=== PATIENT | female | born 1930 | race Caucasian/White ===

== ENCOUNTER 2019-10-11 17:32 | Emergency (ER) | payer OTHER ==
[2019-10-11 18:02] VITALS: BMI 22.1
[2019-10-11] MEDS ORDERED: LORazepam 2 MG/ML SDV VIAL ONE (18:05)
[2019-10-11] MEDS ORDERED: DIPHTH,PERTUSS(ACELL),TET 0.5 ML DISP.SYRIN IM ONE ×2 (18:25→18:31)
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
[2019-10-11 18:45] LABS: BASO % 0.6 % (0-2.0); EOS % 1.9 % (0-4.5); HEMOGLOBIN 14.1 GM/dL (10.7-15.3); LYMPH % 33.7 % (8-40); MCH 32.4 pg (25.7-33.7); MCHC 33.6 g/dl (32.0-36.0); MEAN CELL VOLUME 96.2 fl (80-96); MEAN PLT VOLUME 9.8 fl (7.5-11.1); MONO % 4.9 % (3.8-10.2); NEUT % 58.9 % (42.8-82.8); PLATELET COUNT 271 K/MM3 (134-434); RBC 4.37 M/mm3 (3.60-5.2); RDW 12.9 % (11.6-15.6); WHITE BLOOD COUNT 8.6 K/mm3 (4.0-10.0)
[2019-10-11 18:59] VITALS: BP 113/55; PULSE 72; TEMP 97.6
[2019-10-11 19:09] LABS: INR 0.97 (0.83-1.09); PROTHROMBIN TIME (PATIENT) 11.5 SEC (9.7-13.0)
[2019-10-11 19:10] LABS: ALBUMIN 3.6 g/dl (3.4-5.0); ALK PHOS 78 U/L (45-117); ANION GAP 13 MMOL/L (8-16); BILIRUBIN,TOTAL 0.4 mg/dL (0.2-1); BLOOD UREA NITROGEN 25.4 mg/dL (7-18); CALCIUM 8.6 mg/dL (8.5-10.1); CHLORIDE 108 mmol/L (98-107); CO2 20 mmol/L (21-32); CREATININE 0.9 mg/dL (0.55-1.3); GLUCOSE,RANDOM 156 mg/dL (74-106); POTASSIUM 4.1 mmol/L (3.5-5.1); SGOT/AST 17 U/L (15-37); SGPT/ALT 29 U/L (13-61); SODIUM 140 mmol/L (136-145); TOT PROT 6.9 g/dl (6.4-8.2)
[2019-10-11 19:11] LABS: ACTIVATED PTT 31.2 SECONDS (25.2-36.5)
--- NOTE | 2019-10-12 09:50 | EKG ---
Test Reason : Blood Pressure : / mmHG Vent. Rate : 073 BPM Atrial Rate : 073 BPM P-R Int : 196 ms QRS Dur : 090 ms QT Int : 402 ms P-R-T Axes : 060 -17 051 degrees QTc Int : 442 ms NORMAL SINUS RHYTHM SEPTAL INFARCT , AGE UNDETERMINED ABNORMAL ECG NO PREVIOUS ECGS AVAILABLE Confirmed by Duane Toney MD ([id number]) on 10/12/2019 9:50:14 AM Referred By: Confirmed By:Duane Toney MD
== END 2019-10-11 21:10 | disposition home or self-care (01) ==
LOC: JER 17:32
PROC: 3E0234Z Introduction of Serum, Toxoid and Vaccine into Muscle, Percutaneous Approach (ICD-10-PCS; principal; 2019-10-11)
PROC: 0HQ1XZZ Repair Face Skin, External Approach (ICD-10-PCS; 2019-10-11)
DX: S01.81XA Laceration without foreign body of other part of head, initial encounter (principal); V43.52XA Car driver injured in collision with other type car in traffic accident, initial encounter; W22.11XA Striking against or struck by driver side automobile airbag, initial encounter; Y92.414 Local residential or business street as the place of occurrence of the external cause; Y93.89 Activity, other specified; Y99.8 Other external cause status; F10.920 Alcohol use, unspecified with intoxication, uncomplicated; Y90.5 Blood alcohol level of 100-119 mg/100 ml; I10 Essential (primary) hypertension; E03.9 Hypothyroidism, unspecified; E11.9 Type 2 diabetes mellitus without complications
CPT/HCPCS: 36415; 70450-TC; 70486-TC; 71045-TC-FY; 72125-TC; 80053; 80307; 82550; 84484; 85025; 85610; 85730; 90715; 93005; 93010; 99285-25